=== PATIENT | male | born 1945 | race African-American/Black ===

== ENCOUNTER 2017-03-31 12:59 | Emergency (ER) | payer OTHER, BC ==
[2017-03-31] MEDS ORDERED: NORMAL SALINE 1000 ML 1,000 ML IV ONE (13:35)
[2017-03-31 15:09] LABS: ABSOLUTE EOSINOPHILS # (AUTO) 0.9 10^3/uL (0.0-0.6); ABSOLUTE LYMPHOCYTES (AUTO) 0.9 10^3/uL (0.5-4.7); ABSOLUTE MONOCYTES (AUTO) 0.5 10^3/uL (0.1-1.4); ABSOLUTE NEUT (AUTO) 3.9 10^3/uL (1.7-8.2); BASOPHILS % (AUTO) 0.6 % (0-2); EOSINOPHILS % (AUTO) 13.9 % (0-6); LYMPHOCYTES % (AUTO) 13.8 % (13-45); MEAN CORPUSCULAR HEMOGLOBIN 30.7 pg (27.0-33.4); MEAN CORPUSCULAR VOLUME 88 fl (80-97); MONOCYTES % (AUTO) 8.1 % (3-13); RED BLOOD COUNT 2.62 10^6/uL (4.35-5.55); RED CELL DISTRIBUTION WIDTH 15.6 % (11.5-14.0); SEGMENTED NEUTROPHILS % (AUTO) 63.6 % (42-78); TOTAL CELLS COUNTED % (AUTO) 100 %; WHITE BLOOD COUNT 6.2 10^3/uL (4.0-10.5)
[2017-03-31 15:21] LABS: ALANINE AMINOTRANSFERASE 17 U/L (21-72); ALKALINE PHOSPHATASE 103 U/L (38-126); BILIRUBIN,DIRECT 0.2 mg/dL (0.0-0.4); BILIRUBIN,TOTAL 0.3 mg/dL (0.2-1.3); BLOOD UREA NITROGEN 24 mg/dL (7-20); CALCIUM 10.6 mg/dL (8.4-10.2); PLATELET COUNT 95 10^3/uL (150-450)
[2017-03-31 15:34] LABS: ALBUMIN 3.7 g/dL (3.5-5.0); ANION GAP 10 (5-19); ASPARTATE AMINO TRANSFERASE 21 U/L (17-59); CARBON DIOXIDE 27 mmol/L (22-30); CHLORIDE 104 mmol/L (98-107); GLUCOSE 112 mg/dL (75-110); POTASSIUM 4.6 mmol/L (3.6-5.0); SODIUM 140.7 mmol/L (137-145); TOTAL PROTEIN 6.8 g/dL (6.3-8.2)
[2017-03-31 15:46] LABS: APPEARANCE,URINE SLIGHTLY-CLOUDY; BILIRUBIN,URINE NEGATIVE (NEGATIVE); COLOR,URINE YELLOW; GLUCOSE, URINE NEGATIVE (NEGATIVE); KETONES,URINE NEGATIVE (NEGATIVE); LEUKOCYTE ESTERASE,URINE TRACE (NEGATIVE); NITRITE,URINE NEGATIVE (NEGATIVE); PROTEIN,URINE NEGATIVE (NEGATIVE); URINE SPECIFIC GRAVITY 1.016
--- NOTE | 2017-03-31 16:18 | RADIOLOGY REPORT (SQ) ---
EXAM DESCRIPTION: CHEST PA/LAT COMPLETED DATE/TIME: 03/31/2017 4:06 pm REASON FOR STUDY: History of cancer COMPARISON: 01/16/2011. EXAM PARAMETERS: NUMBER OF VIEWS: two views TECHNIQUE: Digital Frontal and Lateral radiographic views of the chest acquired. RADIATION DOSE: NA LIMITATIONS: none FINDINGS: LUNGS AND PLEURA: No opacities, masses or pneumothorax. No pleural effusion. MEDIASTINUM AND HILAR STRUCTURES: No masses or contour abnormalities. HEART AND VASCULAR STRUCTURES: Heart normal size. No evidence for failure. BONES: No acute findings. HARDWARE: Vascular access port. Surgical clips in the left hilum. OTHER: No other significant finding. IMPRESSION: NO ACUTE RADIOGRAPHIC FINDING IN THE CHEST. TECHNICAL DOCUMENTATION: JOB ID: [id number] [employer]- All Rights Reserved
--- NOTE | 2017-03-31 16:21 | RADIOLOGY REPORT (SQ) ---
EXAM DESCRIPTION: HIP LEFT AP/LATERAL COMPLETED DATE/TIME: 03/31/2017 4:06 pm REASON FOR STUDY: Prior surgery for cancer in bone COMPARISON: None. NUMBER OF VIEWS: Two views. TECHNIQUE: AP pelvis and additional frog-leg view of the left hip. LIMITATIONS: None. FINDINGS: MINERALIZATION: Normal. PELVIS AND HIPS: Severe destructive changes in the left hemipelvis with marked deformity of the acet abulum. Marked radiolucency of the acetabulum and deformity and radiolucency involving the left isch ium. Hardware in the left iliac crest. There is focal lucency in the left femoral neck. The right hemipelvis and the right hip and proximal femur unremarkable. SACRUM: No fracture or dislocation. No worrisome bone lesions. LOWER LUMBAR SPINE: No fracture or dislocation. No worrisome bone lesions. No significant disc disea se. SOFT TISSUES: No findings. OTHER: No other significant finding. IMPRESSION: SEVERE DEFORMITY OF THE LEFT HEMIPELVIS WITH MARKED DESTRUCTIVE AND/OR POSTOPERATIVE IVRAJ NGES. RADIOLUCENCIES IN THE ACETABULUM, ISCHIUM, AND LEFT FEMORAL NECK. UNABLE TO DETERMINE IF THER E ARE ANY ACUTE FINDINGS OR PROGRESSIVE FINDINGS THERE ARE NO PRIOR STUDIES AVAILABLE. TECHNICAL DOCUMENTATION: JOB ID: [id number] [employer]- All Rights Reserved
--- NOTE | 2017-03-31 17:23 | RADIOLOGY REPORT (SQ) ---
EXAM DESCRIPTION: ABDOMEN 2 VIEWS COMPLETED DATE/TIME: 03/31/2017 5:14 pm REASON FOR STUDY: No BM for 3 weeks COMPARISON: None. NUMBER OF VIEWS: Two views. TECHNIQUE: Supine and erect/decubitus radiographic images of the abdomen acquired. LIMITATIONS: None. FINDINGS: FREE AIR: None. No abnormal gas collections. LUNG BASES: Clear. BOWEL GAS PATTERN: Nonobstructive pattern. No dilated loops or air fluid levels. Prominent stool thr oughout the colon. CALCIFICATIONS: No suspicious calcifications. SOFT TISSUES: No gross mass or suggestion of organomegaly. HARDWARE: None in the abdomen. BONES: Findings in the left hip and pelvis discussed in the report of the separate x-ray of the hip. OTHER: No other significant finding. IMPRESSION: PROMINENT STOOL THROUGHOUT THE COLON CONSISTENT WITH CONSTIPATION. OTHERWISE NO RADIOGR APHIC EVIDENCE FOR ACUTE ABDOMINAL DISEASE. TECHNICAL DOCUMENTATION: JOB ID: [id number] [email or web address]- All Rights Reserved
--- NOTE | 2017-03-31 18:44 | ER Document Report ---
ED General - General Chief Complaint: Pain All Over Stated Complaint: BODY PAIN Time Seen by Provider: 03/31/17 13:34 Notes: Patient was brought in by EMS for feeling weak and dizzy but also inability to bear much weight on his left lower extremity. 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 Patient underwent surgery on that left hip about 10 or 11 months ago. He was scheduled to be seen by his oncologist that [facility]. today, but was unable to use his left leg. His called to [facility] this morning and was told to have the patient seen here in the emergency department. 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 He had 2 surgeries at [place]. Patient denies any chest congestion or shortness of breath. Denies any chest pain. Denies any urinary tract symptoms. Denies any fever. . After my initial assessment of the patient, I contacted Dr. Monzon at [facility] and she said that the patient's had expressed concern at how much pain the patient was having and not sufficiently controlled with his current regimen. Currently, the patient is on 80 mg of OxyContin every 12 hours and then 10 mg of oxycodone to take 1 or 2 every 4 hours, as needed. The says that he is taking all of this medication and still not getting sufficient pain relief. Patient controls his own pain pill distribution. Additionally, says patient has not had a bowel movement in 2-3 weeks. Denies any nausea or vomiting. Is hungry and willing to take food. Just has not had a bowel movement. TRAVEL OUTSIDE OF THE [place] 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 EENT: Denies eye, ear, nose or mouth or throat pain or other symptoms. CARDIOVASCULAR: Denies chest pain. RESPIRATORY: Denies cough, chest congestion, or shortness of breath. GASTROINTESTINAL: Denies abdominal pain or nausea, vomiting, or diarrhea. See HPI regarding no BM for 2-3 weeks. GENITOURINARY: Denies difficulty or painful urinating, urinary frequency, blood in urine. MUSCULOSKELETAL: Patient has severe pain in the proximal left hip area. He is unable to walk without using a walker and that is even difficult today. SKIN: Denies rash or skin lesions. NEUROLOGICAL: Denies LOC or altered mental status. Denies headache. Denies sensory loss or motor deficits. ALL OTHER SYSTEMS REVIEWED AND NEGATIVE. Physical Exam - Vital signs Vitals: Temp Resp 97.9 F 19 03/31/17 13:35 03/31/17 13:35 Interpretation: Normal - Blood pressure at the scene was 89/50 and another retake upright was 70/40., Hypotensive - Notes Notes: PHYSICAL EXAMINATION: GENERAL: Well-appearing, in no acute distress. Patient's blood pressure is low. He says that he always has a low blood pressure. HEAD: Atraumatic, normocephalic. EYES: Pupils equal round and reactive to light, extraocular movements intact. ENT: oropharynx clear without exudates. Moist mucous membranes. NECK: Normal range of motion, supple. LUNGS: Breath sounds clear and equal bilaterally. HEART: Regular rate and rhythm without murmurs. ABDOMEN: Soft, nontender. No guarding or rebound. No masses. Rectal exam reveals no stool in the vault. No lesions felt. No blood present. BACK: No tenderness throughout entire back. EXTREMITIES: Tender to press on the left hip area or to move the left hip. Excellent dorsalis pedis pulse in the left foot. Excellent capillary refill. Warm toes. NEUROLOGICAL: Normal speech. Normal sensory, motor, and reflex exams. Awake, alert, and oriented x3. Cranial nerves normal. PSYCH: Normal mood, normal affect. SKIN: Warm, dry, no rashes. Course - Re-evaluation Re-evalutation: 03/31/17 20:36 I also had a second conversation with Dr. Monzon after all of her studies had come back. Patient does not appear to have any infections. He does not appear to have any fractures of the hip or pelvis. He does appear to be constipated by x-ray. I spoke with our hospitalist who declined to admit the patient for bowel cleansing. I spent a large amount of time going over treating constipation with the patient and his . Also, after discussions with Dr. Monzon. We are going to increase his pain medications to OxyContin 100 mg every 12 hours and oxycodone 10 mg, 2 or 3 every 4 hours as needed. Patient and were encouraged to take the patient to their scheduled appointment at [place] tomorrow, if they can make it in any way. Otherwise, they were encouraged to follow-up with their primary care doctor, Dr. Monzon as soon as possible. - Vital Signs Vital signs: Temp Pulse Resp BP Pulse Ox 98.6 F 17 114/64 97 03/31/17 19:01 03/31/17 19:01 03/31/17 19:01 03/31/17 19:01 - Laboratory Result Diagrams: 03/31/17 14:49 03/31/17 14:49 Laboratory results interpreted by me: 03/31/17 03/31/17 03/31/17 14:49 14:49 15:19 RBC 2.62 L Hgb 8.0 L Hct 23.0 L RDW 15.6 H Plt Count 95 L Eosinophils % 13.9 H Absolute Eosinophils 0.9 H BUN 24 H Creatinine 1.62 H Est GFR ( Amer) 51 L Est GFR (Non-Af Amer) 42 L Glucose 112 H Calcium 10.6 H ALT 17 L Urine Urobilinogen 2.0 H Ur Leukocyte Esterase TRACE H 03/31/17 20:35 Dr. Monzon says the patient has been transfused a couple times in the past, but only when his hemoglobin got down to 7 or 7.5. - Diagnostic Test Radiology reviewed: Image reviewed, Reports reviewed - X-rays of the patient's abdomen reveals constipation. No bowel obstruction. X-ray of the patient's left hip shows severe deformity of the left magali-pelvis with marked destructive changes - EKG Interpretation by Me EKG shows normal: Sinus rhythm Discharge - Discharge Clinical Impression: Left hip pain, Metastatic cancer to pelvis, Constipation Condition: Stable Disposition: HOME, SELF-CARE Additional Instructions: CONSTIPATION: Constipation is a common problem. It is especially likely as you get older. Constipation is a common cause of abdominal pain, but sometimes causes no symptoms at all. Causes of constipation include certain medications, dehydration, diets, inactivity, and low-fiber intake. Rarely, it can be a symptom of underlying disease. The physician has evaluated you for this. Avoid constipation by eating a diet high in fiber, fruits, and vegetables. Drink plenty of liquids. Get regular exercise. If possible, avoid constipating medicines like narcotic pain medication. Some vitamin tablets can cause constipation. Stool softeners may be needed for difficult cases. An excellent stool softener is Konsyl which is available at [employer], and [employer]. Just add a teaspoon to a glass of pineapple or orange juice daily or twice a day if needed. Laxatives are useful for occasional constipation. You should use them only when necessary. Too-frequent use can make your bowels dependent on them. Some over the counter laxatives available without prescription are: Milk of Magnesia, 1-2 tablespoons twice a day Dulcolax, 5 mg pill or 10 mg suppository. Citrate of Magnesia, 4-5 ounces a day for a day or two For acute constipation, Fleet's Enemas and Dulcolax suppositories are helpful. Chronic, prison use of laxatives or enemas is not a good idea. Your bowel may become dependant on them. You do not need to have a bowel movement every day. Many people do fine with a bowel movement every three or four days. You should call your doctor or return for re-evaluation if you pass blood in the stool, or if you develop fever or increasing abdominal pain. BULK LAXATIVES: Bulk laxatives make the stool softer and bulkier. They're useful for preventing constipation. You can choose between psyllium, methylcellulose, and polycarbophil. They are available without a prescription. Psyllium brand names include Konsyl, Metamucil, Perdiem, Effer-Syllium and Hydrocil. It's available as powder, flavored drink powder, or chewable. The usual dose of psyllium powder is one heaping teaspoon in water each morning, increasing to twice a day if needed. Vermillion juice can disguise the slightly grainy texture. Methylcellulose is marketed as Citrucel and other brands. The average dose is two grams in a cup of water one to three times a day. Polycarbophil is marketed as Fiber-Con. Take two tablets with a cup of water one to three times a day. LAXATIVE: A laxative agent has been prescribed for your condition. This should result in passage of stool within 12 hours. Some mild intestinal cramping is common as the hard stool begins to move. You may have loose or runny stools for a short time. Contact your doctor if there is severe cramping, vomiting, or passage of blood. Return for further care if this medicine fails to improve your condition. Oral Narcotic Medication You have been given a prescription for pain control. This medication is a narcotic. It's best taken with food, as nausea can result if taken on an empty stomach. Don't operate machinery or drive within six hours of taking this medication. Do not combine this medicine with alcohol, or with any medication which can cause sedation (such as cold tablets or sleeping pills) unless you get permission from the physician. Narcotics tend to cause constipation. If possible, drink plenty of fluids and eat a diet high in fiber and fruits. Increased her OxyContin to 100 mg every 12 hours. Then, supplement that with oxycodone 10 mg, take 2 or 3 tablets every 4 hours as needed. FOLLOW-UP CARE: If you have been referred to a physician for follow-up care, call the physician s office for an appointment as you were instructed or within the next two days. If you experience worsening or a significant change in your symptoms, notify the physician immediately or return to the Emergency Department at any time for re-evaluation. Follow-up with your doctor Na at [facility]. Prescriptions: Oxycodone HCl [Oxycodone HCl 10 MG Tablet] 2 - 3 tab PO Q4HP PRN #40 tablet PRN Reason: PAIN Oxycodone HCl [Oxycontin] 20 mg PO Q12H #15 tab.sr.12h Referrals: ANALI HANNAH MD [Primary Care Provider] - Follow up as needed
[2017-03-31] MEDS ORDERED: OXYCODONE-ACETAMINOPHEN 5-325 MG TABLET PO ONE (18:56)
[2017-03-31 19:06] VITALS: BP 114/64
== END 2017-03-31 19:43 | disposition home or self-care (01) ==
LOC: ER 12:59
DX: G89.3 Neoplasm related pain (acute) (chronic) (principal); M25.552 Pain in left hip; C79.51 Secondary malignant neoplasm of bone; C34.90 Malignant neoplasm of unspecified part of unspecified bronchus or lung; K59.00 Constipation, unspecified; I95.9 Hypotension, unspecified; R53.1 Weakness; R42 Dizziness and giddiness; Z79.891 Long term (current) use of opiate analgesic; Z98.890 Other specified postprocedural states; Z87.891 Personal history of nicotine dependence
CPT/HCPCS: 36591; 99284; 96360; 36415; 85025; 80053; 81001; 74019; 71046; 73502; J7030